=== PATIENT | female | born 1960 | race Caucasian/White ===

== ENCOUNTER 2019-01-17 18:09 | Inpatient (IN) | payer OTHER ==
[~2019-01-17] VITALS: Ht 182.9 cm; Wt 171.5 kg
--- NOTE | 2019-01-17 18:20 | NUR ---
PT [facility]IB[facility] -[facility], MEDICAL ATTENDANT REPORT FOLLOWS, PICKED [facility] FOR [facility] AND [facility], STARTED HAVING BACK SPASMS, LEFT LOWER 10/10, DIFFICLUTY STANDING. HIGH FALL RISK. LAMINECTOMY 30YRS AGO, PACEMAKER X3-AFIB, AORTIC ANUERYSM, HTN, HYPERLIPEDEMIA, DOUBLE MASTECTOMY, RT SIDED LYMPHOMA. BP 190/100. DR OLSON AT BEDSIDE FOR EXAM. NO MEDS GIVEN EN ROUTE.
[2019-01-17 18:57] LABS: BASOPHIL % 0.4 % (0-2); PLATELET COUNT 255 x10^3mcL (130-400); RED CELL DISTRIBUTION WIDTH 14.3 % (11.5-14.5)
--- NOTE | 2019-01-17 18:59 | NUR ---
EMT AT BED FOR REQUESTED REPOSITONING, VERBALIZED COMFORT. AT BEDSIDE, MEDICATED ORDERED.
[2019-01-17 19:14] LABS: CALCIUM 9.5 mg/dL (8.5-10.1); CARBON DIOXIDE 28.6 mmol/L (21-32); CHLORIDE SERUM 104 mmol/L (98-107); CREATININE SERUM 0.8 mg/dL (0.6-1.0); GFR1 > 60 mL/min; GLUCOSE SERUM 114 mg/dL (74-106); SODIUM SERUM 142 mmol/L (136-145)
[2019-01-17 19:16] LABS: ALBUMIN 4.1 g/dL (3.4-5.0); ALKALINE PHOSPHATASE 79 U/L (46-116); ALT/SGPT 27 U/L (14-59); AST/SGOT 18 U/L (15-37); TOTAL PROTEIN, SERUM 8.2 g/dL (6.4-8.2)
--- NOTE | 2019-01-17 19:17 | NUR ---
RECEIVED REPORT FOR CONTINUITY OF CARE. PT IS A/OX4. BREATHING IS E/U ON RA. NO S/S OF ACUTE DISTRESS NOTED. WILL CONT TO MONITOR
[2019-01-17 20:46] LABS: microscopic required? NO
[2019-01-17 21:16] LABS: urine erythrocyte NEGATIVE (NEGATIVE)
[2019-01-17] MEDS ORDERED: LOP50 PO (23:17)
[2019-01-17] MEDS ORDERED: ELIQUIS5 M1 PO (23:17)
[2019-01-17] MEDS ORDERED: LOVASTATIN40 MG PO (23:18)
[2019-01-17] MEDS ORDERED: LISINOPRIL20 MG PO (23:18)
[2019-01-17] MEDS ORDERED: LASIX20 MG PO (23:18)
[2019-01-17] MEDS ORDERED: CALCIUM + D3 E1 EACH PO (23:19)
[2019-01-17] MEDS ORDERED: D3-50001 TAB PO (23:19)
--- NOTE | 2019-01-17 23:34 | NUR ---
REPORT GIVEN TO GAVINO BAILON FOR CONTINUITY OF CARE
[2019-01-17 23:53] LABS: CHOLESTEROL/HDL RATIO 3.6; MAGNESIUM 2.2 mg/dL (1.8-2.4); PHOSPHOROUS 4.7 mg/dL (2.5-4.9)
--- NOTE | 2019-01-18 | NUR ---
RECEIVED PT FROM ED [facility]IA [facility], CAME IN DUE TO LEFT BACK PAIN, HAD SPASMS AND WAS NOT ABLE TO MOVE. AAOX4. DENIES HEADACHE/DIZZINESS. NO SOB NOTED, LUNG SOUNDS CTA, O2 SAT 95% RA. DENIES CHEST PAIN/PRESSURE. W/ RIGHT CHEST PACEMAKER ([employer]). DENIES ABDOMINAL DISCOMFORT. C/O 6/10 LEFT LOWER BACK PAIN DESCRIBED SPASMS AND SHARP, WORSE ON MOVEMENT. IV SITE ON THE LAC GAUGE 20 IS PATENT AND INTACT. SIDE RAILS UPX2. CALL LIGHT ON REACH. HOB ELEVATED AT 30 DEG. ENDORSED TO PRIMARY NURSE GAVINO FOR CONTINUITY OF CARE
[2019-01-18 00:08] VITALS: BP 144/78
--- NOTE | 2019-01-18 00:10 | NUR ---
PATIENT RECEIVED FROM ED [facility]IA [facility] ACCOMPANIED BY RN,PATIENT IS ALERT AND ORIENTED X4, IN NO DISTRESS, STATED PAIN TO BACK IS BETTER COMPARED TO WHEN SHE CAME IN, RATED AT 6/10 FROM 10. HEPLOCK TO LEFT AC INTACT.ACQUIANTED TO BEDSIDE EQUIPMENTS AND UNIT POLICIES, CALL LIGHT PLACED IN REACH. SAFETY/FALL PRECAUTIONS INITIATED. RESTRICTED EXTREMITY BAND APPLIED TO RIGHT ARM AND PLACED SIGN IN ROOM.
[2019-01-18 00:14] VITALS: Ht 182.9 cm; Wt 171.5 kg
[2019-01-18] MEDS ORDERED: TOP50 PO (00:14)
--- NOTE | 2019-01-18 00:43 | NUR ---
IVF OF NS REGULATED VIA PUMP AT RATE OF 200ML/HR. PATIENT ADVICED TO CALL NURSE IF NURSE NEEDED TO HELP HER USE BEDPAN.
--- NOTE | 2019-01-18 00:44 | NUR ---
PATIENT STATED THAT SHE USES A CPAP AT HOME FOR HER EVELIA, DR BUSH MADE AWARE.
--- NOTE | 2019-01-18 00:57 | NUR ---
PATIENT COMPLAINED OF BACK PAIN AND MUSCLE SPASM, MEDICATED PRN. WILL MONITOR EFFECTIVENESS.
--- NOTE | 2019-01-18 00:58 | NUR ---
CPAP APPLIED BY RT SETTING AT 6, FIO2 21%.
[2019-01-18 01:30] VITALS: BP 144/78
--- NOTE | 2019-01-18 01:55 | NUR ---
CHECKED EFFECTIVENESS OF PERN MEDS GIVEN, RAUL STATED PAIN IS SLOWLY SUBSIDING AT 2/10,COMFORTABLE.
--- NOTE | 2019-01-18 03:00 | NUR ---
SLEEPING COMFORTABLY,CPAP MAINTAINED. IV SITE NO SIGN OF INFILTRATION.SAFETY PREC. MAINTAINED .WILL CONTINUE TO MONITOR.
[2019-01-18 04:18] LABS: AMPHETAMINE QUAL UR NONE DETECTED (See below)
--- NOTE | 2019-01-18 04:28 | NUR ---
CALLED AND COMPLAINED OF BACK PAIN RATED AT 7/10, MEDICATED PRN, MADE COMFORTABLE, UQ=026/89.WILL CHECK EFFECTIVENESS.
[2019-01-18 05:57] VITALS: BP 138/84
--- NOTE | 2019-01-18 06:25 | NUR ---
PATIENT SLEPT OFF AND ON SINCE ARRIVAL TO THE FLOOR, WAS MEDICATED X2 WITH MS WITH RELIEF. ABLE TO MAKE NEEDS KNOWN. IV SITE NO SIGN OF INFILTRATION,ADVICED TO KEPT ARM STRAIGHT D/T LOCATION ON IV.REMAINED ON CPAP AND IS TOLERATING SETTING. SAFETY PRECAUTIONS MAINTAINED. WILL ENDORSE CONTINUITY OF CARE TO INCOMING NURSE.
[2019-01-18 06:55] LABS: CALCIUM 8.5 mg/dL (8.5-10.1); CARBON DIOXIDE 27.8 mmol/L (21-32); CHLORIDE SERUM 107 mmol/L (98-107); CREATININE SERUM 0.7 mg/dL (0.6-1.0); GFR1 > 60 mL/min; GLUCOSE SERUM 108 mg/dL (74-106); POTASSIUM SERUM 3.5 mmol/L (3.5-5.1); SODIUM SERUM 143 mmol/L (136-145)
--- NOTE | 2019-01-18 07:15 | NUR ---
RECEIVED REPORT FROM CULTURAL CENTRE MANAGER NURSE AT THIS TIME. PATIENT RESTING COMFORTABLY IN BED. NO APPARENT DISTRESS OR DISCOMFORT NOTED. BREATHING EVEN AND UNLABORED. NO INDICATION OF SHORTNESS OF BREATH. PATIENT DENIES CHEST PAIN AT THIS TIME. IV PATENT AND INTACT INFUSING NORMAL SALINE. ALL QUESTIONS AND CONCERNS ADDRESSED. ALL NEEDS ATTENDED TO. WILL CONTINUE TO MONITOR
--- NOTE | 2019-01-18 07:25 | NUR ---
BEDSIDE REPORT AND HANDS OFF GIVEN TO INCOMING NURSE MAO.
[2019-01-18 07:52] LABS: BASOPHIL % 0.8 % (0-2); PLATELET COUNT 207 x10^3mcL (130-400)
[2019-01-18 07:55] LABS: RED CELL DISTRIBUTION WIDTH 14.6 % (11.5-14.5)
--- NOTE | 2019-01-18 10:00 | NUR ---
ALL MORNING MEDICATIONS ADMINISTERED. PATIENT TOLERATED MEDICATION WELL. NO ADVERSE EFFECTS NOTED. ALL QUESTIONS AND CONCERNS ADDRESSED. ALL NEEDS ATTENDED TO. WILL CONTINUE TO MONITOR
[2019-01-18 10:03] VITALS: BP 137/68
--- NOTE | 2019-01-18 11:26 | NUR ---
SPOKE TO DR CASILLAS REGARDING PATIENTS CPAP ORDER TO CHANGE TO PRN. PATIENT C/O FALLING ASLEEP AND NOT BEING ABLE TO BREATHE. PER DR CASILLAS, WILL CHANGE ORDER. ALL NEEDS ATTENDED TO. WILL CONTINUE TO MONITOR
--- NOTE | 2019-01-18 13:00 | NUR ---
PATIENT SITTING UP IN BED EATING LUNCH AT THIS TIME. NO APPARENT DISTRESS OR DISCOMFORT NOTED. PATIENT TOLERATING DIET WELL. ALL NEEDS ATTENDED TO. WILL CONTINUE TO MONITOR
--- NOTE | 2019-01-18 13:22 | NUR ---
DR PIZANO FOR DISCHARGE. AWAITING PLACEMENT AT LONGTERM FACILITY. ALL QUESTIONS AND CONCERNS ADDRESSED. WILL CONTINUE TO MONITOR PATIENT
[2019-01-18 16:20] VITALS: BP 144/67
--- NOTE | 2019-01-18 18:13 | NUR ---
PATIENT SITTING UP IN BED EATING DINNER AT THIS TIME. PATIENT TOLERATING DIET WELL. NO APPARENT DISTRESS OR DISCOMFORT NOTED. IV TO LEFT AC INFILTRATED AND REMOVED WITH CATH INTACT. NEW IV PLACED TO LEFT FOREARM. ALL QUESTIONS AND CONCERNS ADDRESSED. ALL NEEDS ATTENDED TO. WILL CONTINUE TO MONITOR
--- NOTE | 2019-01-18 18:42 | NUR ---
PATIENT RESTING COMFORTABLY IN BED AT THIS TIME. NO APPARENT DISTRESS OR DISCOMFORT NOTED. IV PATENT AND INTACT. ALL QUESTIONS AND CONCERNS ADDRESSED. SAFETY PRECAUTIONS MAINTAINED. ALL NEEDS ATTENDED TO. WILL ENDORSE ALL CARE TO HOME ECONOMICS EXTENSION WORKER NURSE
--- NOTE | 2019-01-18 19:55 | NUR ---
RECEIVED PT AWAKE, ALERT AND ORIENTED X4, NO ACUTE DISTRESS NOTED. DENIES DIZZINESS, PARMAR, LIGHTHEADEDNESS; PT IS MEDSURG; DENIES CHEST DISCOMFORT AT THIS TIME. FOUND PT ON RA, BREATHING E/U, DENIES SOB, CPAP AT BEDSIDE PRN. PT REPORTS MILD BACK DISCOMFORT AT THIS TIME, TOLERABLE AT THIS TIME. PT IV TO LFA INFUSING IVF ORDERED, IV SITE IS PATENT AND INTACT. NO SWELLING OR PAIN NOTE NOTED TO AREA. ALL SAFETY AND COMFORT MEASURES MAINTAINED. FWW NEAR BEDSIDE. CALL LIGHT AND PERSONAL ITEMS IN REACH. WILL CONTINUE TO MONITOR.
[2019-01-18 20:45] VITALS: BP 125/67
--- NOTE | 2019-01-18 22:35 | NUR ---
PT RESTING IN BED, DENIES PAIN AT THIS TIME. CPAP IN PL, ALL SAFETY MEASURES MAINTAINED. CALL LIGHT IN REACH. WILL CONTINUE TO MONITOR.
--- NOTE | 2019-01-18 22:40 | NUR ---
PT STATED "MY HEART FEELS WEIRD." AND THAT "I FEEL LIKE I NEED TO CATCH MY BREATH." DR. BUSH WAS NOTIFIED AND ORDERED A STAT EKG, TRANSFERED TO TELE AND TROP I AND CKMB ORDERED. DR. BUSH SPOKE TO PATIENT. PT IS IN STABLE CONDITION, ALERT AND ORIENTED X4. CN NOTIFIED RT, CPAP APPLIED TO PT. ALL SAFETY AND COMFORT MEASURES MAINTAINED. CALL LIGHT AND PERSONAL ITEM IN REACH. WILL CONTINUE TO MONITOR.
[2019-01-19 05:04] VITALS: BP 144/70
--- NOTE | 2019-01-19 06:42 | NUR ---
PT RESTED INTERMITTENTLY DURING THE NIGHT. NO FURTHER C/O PAIN SINCE LAST ADMINISTRATION OF NAPROXEN. PT HAS HAD CPAP IN PL DURING THE NIGHT.NO C/O RESP. DISCOMFORT AT THIS TIME. PT HAS BEEN 100% PACED SHOWING ON TELE STRIP. NO C/O CHEST PAIN, PALPITATIONS AT THIS TIME. IV TO LFA REMAIN PATENT AND INTACT. ALL SAFETY MEASURES MAINTAINED. CALL LIGHT IN REACH. WILL ENDORSE CARE TO AM NURSE.
--- NOTE | 2019-01-19 07:20 | NUR ---
RECEIVED PT. IN BED SLEEPING AT THIS TIME. PT. IS ON CPAP MACHINE. PT. CAN BE AROUSED EASILY. PT. IS ORIENTED X3. NO SOB, NO N/V NOTED. PT. DENIES ANY PAIN AT THIS TIME. NS RUNNING AT 200 CC/HR. VIA IV SITE AT L FA. BED IN LOW POS., CALL LIGHT WITHIN REACH. SIDE RAILS UP X3.
[2019-01-19 09:38] VITALS: BP 152/60
[2019-01-19 13:30] VITALS: BP 137/66
--- NOTE | 2019-01-19 14:00 | NUR ---
CALLED AND GAVE REPORT TO ADAMARIS TORREZ AT [facility]. ALL QUESTIONS NAD CONCERNS ADDRESSED.
--- NOTE | 2019-01-19 15:30 | NUR ---
DISCHARGE INSTRUCTIONS GIVEN TO PT. WHO VERBALIZED UNDERSTANDING OF INSTRUCTIONS. IV H/L TO L FA REMOVED. TELE. MONITOR #6 REMOVED AND RETURNED TO TELE. MONITOR STATION. PT.'S HOME MED. (XALATAN EYE DROP) RETURNED TO PT. PRIOR TO DISCHARGE.
--- NOTE | 2019-01-19 17:00 | NUR ---
PT.'S ARRIVED. PT. IS BEING DISCHARGED TO [facility] VIA PRIVATE TRANSPORTATION. WILL TAKE PT. TO [facility]. VIA HIS PRIVATE AUTO. ALL BELONGINGS SENT WITH PT. UPON DISCHARGE.
== END 2019-01-19 16:59 | DRG 551 ==
LOC: ED 18:09 → DU 22:52 → MU 22:52 → DU 01-19 04:20
PROVIDERS: Emergency Medicine; ADMIT Internal Medicine
DX: S33.5XXA Sprain of ligaments of lumbar spine, initial encounter (principal); N17.0 Acute kidney failure with tubular necrosis; Z68.43 Body mass index [BMI] 50.0-59.9, adult; D68.69 Other thrombophilia; E11.9 Type 2 diabetes mellitus without complications; I10 Essential (primary) hypertension; F32.9 Major depressive disorder, single episode, unspecified; E78.5 Hyperlipidemia, unspecified; M17.0 Bilateral primary osteoarthritis of knee; G47.30 Sleep apnea, unspecified; E66.01 Morbid (severe) obesity due to excess calories; V98.8XXA Other specified transport accidents, initial encounter; Y93.89 Activity, other specified; Y92.89 Other specified places as the place of occurrence of the external cause; Z95.0 Presence of cardiac pacemaker; Z85.3 Personal history of malignant neoplasm of breast; Z79.84 Long term (current) use of oral hypoglycemic drugs; Z92.21 Personal history of antineoplastic chemotherapy
CPT/HCPCS: 82962; 97110-GP; 97116-GP; J1885; J2270; J3010; J7030; Q9967